=== PATIENT | female | born 1990 | race Caucasian/White ===

== ENCOUNTER 2019-12-26 23:50 | Emergency (ER) | payer OTHER ==
[~2019-12-26] VITALS: Ht 165.1 cm; Wt 56.7 kg
[2019-12-27] MEDS ORDERED: LEVAQUIN750 MG PO (12:26)
== END 2019-12-27 12:47 | disposition home or self-care (01) ==
LOC: ER 23:50
DX: N39.0 Urinary tract infection, site not specified (principal); Z20.828 Contact with and (suspected) exposure to other viral communicable diseases; B96.29 Other Escherichia coli [E. coli] as the cause of diseases classified elsewhere

== ENCOUNTER 2022-07-09 13:35 | Emergency (ER) | payer OTHER ==
[~2022-07-09] VITALS: Ht 165.1 cm; Wt 62.1 kg
[~2022-07-09 13:35] MED LIST: LEVAQUIN750 MG PO
== END 2022-07-09 21:36 | disposition home or self-care (01) ==
LOC: ER 13:35
DX: R10.9 Unspecified abdominal pain (principal); Z91.018 Allergy to other foods

== ENCOUNTER 2024-06-27 10:24 | Emergency (ER) | payer OTHER ==
[~2024-06-27] VITALS: Ht 165.1 cm; Wt 59.9 kg
[2024-06-27 13:34] VITALS: BP 118/79; O2SAT 100
== END 2024-06-27 13:36 | disposition home or self-care (01) ==
LOC: ER 10:26
DX: G89.11 Acute pain due to trauma (principal); M25.531 Pain in right wrist; Z91.018 Allergy to other foods

== ENCOUNTER 2024-07-11 09:44 | Outpatient (CLI) | payer OTHER | END 2024-07-11 09:55 | disposition home or self-care (01) | LOC: RAD 09:44 | PROVIDERS: ATTEND Orthopaedic Surgery | DX: S52.552A Other extraarticular fracture of lower end of left radius, initial encounter for closed fracture (principal); X58.XXXA Exposure to other specified factors, initial encounter; Y93.9 Activity, unspecified; Y92.9 Unspecified place or not applicable; Y99.9 Unspecified external cause status ==